=== PATIENT | male | born 1985 | race Caucasian/White ===

== ENCOUNTER 2023-09-16 10:16 | Outpatient (CLI) | payer OTHER, SELFPAY | END 2023-09-16 10:17 | disposition home or self-care (01) | LOC: SPT 10:17 | PROVIDERS: Visit Provider Specialist | DX: Z46.89 Encounter for fitting and adjustment of other specified devices (principal); M77.10 Lateral epicondylitis, unspecified elbow; M77.12 Lateral epicondylitis, left elbow; S59.902A Unspecified injury of left elbow, initial encounter; X58.XXXA Exposure to other specified factors, initial encounter | CPT/HCPCS: 97760; 99204; L3908 ==